=== PATIENT | male | born 1950 | race Two or more races ===

== ENCOUNTER 2019-10-16 11:50 | Emergency (ER) | payer MEDICARE, OTHER ==
[~2019-10-16] VITALS: Ht 188 cm; Wt 108.9 kg
[2019-10-16 12:20] VITALS: BP 165/94
--- NOTE | 2019-10-16 12:24 | Emergency Room Report ---
History of Present Illness General Chief Complaint: Upper Respiratory Illness Source: Patient, Family Member Present Illness HPI History of present illness: 61-year-old male with past medical history of dyslipidemia presents with sudden onset shortness of breath, retching and throat pain . Patient was riding in the car when he started choking on a biscuit that he did not properly chew because he is a he subsequently started having nausea, adentulous. The patient's symptoms were abrupt onset, severity was moderate, duration since less than 1 hour. Symptoms happened in the context of swallowing improperly chewed biscuit. The patient endorses associated symptoms of nausea, vomiting, throat pain, and denies any associated symptoms of prodromal chest pain, lightheadedness, syncope, back pain, fever, BETTS , cough or other complaints Past medical history: Dyslipidemia Past surgical history: Denies Smoking: Heavy smoker Alcohol use: Denies Drug use: Denies Review of systems: CONST: No fevers or chills, No night sweats PULMONARY: + cough, + shortness of breath CARDIAC: No chest pain, No palpitations GI: + vomiting, No diarrhea , No melena_or_BRBPR : No dysuria, No hematuria, No discharge NEURO: No new_focal_weakness_or_numbness, No confusion, No vision changes 14 point Review of Systems is otherwise negative except per HPI Physical Exam: GENERAL: Awake_alert_ nontoxic, no acute distress Spo2 100% on [RA], [normal] obese. EYES: Extraocular muscles are intact. Conjunctivae clear. Lids without swelling ENT: External nose and ear normal_in_appearance. Oropharynx clear. Head_ atraumatic, Moist_oral_mucosa No visualized foreign body. NECK: No JVD. No meningismus. No thyromegaly. Supple. Trachea midline. No dysphonia, no stridor, no drooling. No hoarse voice. No palpable foreign body RESP: No increased respiratory effort. Symmetric rise. No stridor. Clear_to_ auscultation_No_rales_No_wheezes CARDIAC: Regular rate and regular rhythm on_auscultation No_significant pedal edema. ABDOMEN: Soft. Nondistended. Nontender_No_rebound_or_guarding. MSK: Normal muscle tone, without rigidity. Extremities without asymmetric deformity or swelling. SKIN: Warm and dry. No visible cyanosis or pallor NEUROLOGIC: Alert, oriented x3. Motor_and_sensation_grossly_intact. No truncal ataxia. Gait_normal Psych: Normal mood and affect, normal judgment and insight - COORDINATION OF CARE Case was discussed with: Patient; Patient's Family; Radiologist Any imaging that were ordered were interpreted as part of the medical decision making: Medical Decision Making/Plan: DDX: FB vs nodule vs hiatal hernia vs aspiration pna versus achalasia versus esophageal spasm On initial evaluation, patient is in mild distress secondary to presumed esophageal foreign body. Patient was promptly placed on monitor and given oxygen. SPO2 was WNL. ETCO2 was also WNL. Oropharynx was patent with no visualized FB. No stridor, drooling, or hoarse voice noted. EKG was performed and showed normal sinus rhythm and no acute abnormalities. Patient was given hot water which relieved the symptoms of esophageal foreign body. I suspect that the water dislodged the food bolus (tea biscuit) Pt was observed for several hours in the ED and able to tolerate PO food and fluid. CT scan of the neck and thorax shows no retained esophageal foreign body which would need emergent endoscopy. No esophageal perforation. CT did demonstrate incidental findings of left vallecular phlebolith, right thyroid lobe nodule, bilateral lung pleural nodules, colonic diverticulosis, and dental caries. Patient and family were informed of these findings. I did recommend follow-up to PMD in 1 to 2 days for referral to GI specialist for endoscopy/colonoscopy, dentist for multiple dental caries, cloth carrier for probable lung biopsy, and repair table operator for thyroid nodule. Patient verbalizes his understanding that all of these referrals must be done via his PMD within a timely manner (1-2 weeks) to eval for infection vs malignancy. Airway was monitored for several hours with full resolution of symptoms. No desaturation events were noted. Patient was seen walking through the hallways of the ER asking to be discharged. Extensive patient education and shared medical decision-making was performed. Pt will be discharged to the care of his son who feels comfortable watching him at home. Strict return ER precautions were discussed. Patient was instructed to call 911 if he feels any more symptoms. Allergies: Coded Allergies: No Known Allergies (Unverified , 10/16/19) COVID-19 Screening Contact w/high risk pt: No Experienced COVID-19 symptoms?: No COVID-19 Testing performed MARINE SERVICES TECHNICIAN: No Nursing Documentation-PMH Past Medical History: No Stated History Physical Exam Vital Signs Date Time Temp Pulse Resp B/P (MAP) Pulse Ox O2 Delivery O2 Flow Rate FiO2 10/16/19 12:03 98.4 81 24 165/94 (117) 99 Room Air Sp02 EP Interpretation: reviewed, normal Procedures Critical Care Time Critical Care Time Critical Care Statement Organ systems at risk include: Cardiac, circulatory, pulmonary Critical care performed for 60 minutes. Time is exclusive of separately billable procedures. Time includes: direct patient care, continuous monitoring and multiple patient reassessment, coordination of patient care, review of patient's medical records , medical consultation, family consultation regarding treatment decisions and documentation of patient care. Medical Decision Making Diagnostic Impression: Primary Impression: Esophageal foreign body Additional Impressions: Nausea and vomiting Dyslipidemia Phlebolith Dental caries Hiatal hernia Pleural nodules Diverticulosis Thyroid nodule EKG Diagnostic Results PA Scribe Text 12-lead EKG (interpreted by me) Time: 1155 Indication: [Rhythm analysis] Tracing visualized and Interpreted by me. Rhythm: Normal sinus rhythm Rate: 76 bpm QTc: 414 Morphology: No_significant_ST_elevations_or_depressions, No STEMI Impression: [Normal_sinus_rhythm_without_significant_abnormality] Rhythm Strip Diag. Results Rhythm Strip Time: 12:22 EP Interpretation: yes Rate: 86 Rhythm: NSR, no PVC's, no ectopy Other Impression Normal CT/MRI/US Diagnostic Results CT/MRI/US Diagnostic Results : Impression Procedure: CT Neck no Contrast Indication: Nausea, retching, throat pain, and shortness of breath after choking on an incompletely masticated biscuit. Findings: Lack of IV contrast limits evaluation. The nasopharynx, oropharynx, hypopharynx, larynx, and included proximal trachea are patent, unremarkable, without evidence of foreign body or other occlusive process. A calcification is seen within the soft tissues adjacent to the left anterolateral aspect of the vallecula. No prevertebral soft tissue swelling demonstrated. The esophagus is grossly unremarkable, although not optimally evaluated in the absence of intraluminal contrast. The visualized portions of the sinuses are clear. There is evidence of multiple dental extractions and dental caries. No cervical mass or adenopathy. The bilateral parapharyngeal spaces are symmetric and clear. The salivary glands are unremarkable. The mastoids are clear. There are advanced degenerative changes of the cervical spine. There is a tiny calcification in the right thyroid lobe upper pole Impression: No evidence of upper aerodigestive tract foreign body or upper respiratory tract occlusive process. Degenerative changes of the cervical spine Soft tissue calcification adjacent to the left side of the vallecula, but uncertain but doubtful significance, possibly a phlebolith. Location is not typical for a sialoltih Other findings as noted, including tiny calcified nodule in the right thyroid lobe upper pole, dental disease Procedure: CT Chest no Contrast Clinical Indication: Sudden onset shortness of breath after choking on an incompletely masticated biscuit Findings: The trachea and proximal airways are clear, without evidence of intraluminal foreign body. The esophagus is nondistended. Intraluminal contents notable evaluated in the absence of ingested contrast. No findings to suggest intraluminal esophageal foreign body demonstrated. There is a small hiatal hernia. There are a few small subpleural nodules, 2 in the right lung apex, one in the posterolateral right upper lobe, at least one in the left lung apex and one in the anterior left upper lobe. The lungs and pleural spaces are clear otherwise. No infiltrates, effusions, masses, or congestion. The heart size is normal. There is some very focal anterior wall pericardial thickening. No mediastinal or hilar mass or adenopathy. The included portion of the thyroid is unremarkable. No axillary or chest wall mass or adenopathy. There is minimal bilateral gynecomastia. The bones demonstrate minimal degenerative spondylosis changes The included upper abdominal anatomy demonstrates colonic diverticulosis Impression: No evidence of proximal airway obstruction. No definite evidence of esophageal foreign body. Bilateral upper lobe subpleural nodules, most likely postinflammatory. Consider 6-12 month follow-up if there is high clinical risk for lung carcinoma. No follow-up necessary if there is not high clinical risk Incidental findings as noted, including small hiatal hernia, trace gynecomastia, colonic diverticulosis, focal anterior wall pericardial thickening Reevaluation Time: 14:11 Last Vital Signs Date Time Temp Pulse Resp B/P (MAP) Pulse Ox O2 Delivery O2 Flow Rate FiO2 10/16/19 12:03 98.4 81 24 165/94 (117) 99 Room Air Status: improved Disposition: HOME, SELF-CARE Admit Decision Time: 14:00 Condition: Stable Scripts Ibuprofen* (MOTRIN*) 600 Mg Tablet 600 MG ORAL Q6H PRN for FOR PAIN, #20 TAB 0 Refills Prov: Karen Chery D.O. 10/16/19 Clindamycin Hcl (CLINDAMYCIN HCL) 300 Mg Capsule 300 MG ORAL THREE TIMES A DAY, #21 CAP Prov: Karen Chery D.O. 10/16/19 Patient Instructions: Dental Caries, [id number], Diverticulosis, Smoking Cessation, Tips for Success, [id number], Swallowed Foreign Body, Adult, Easy- to-Read, Thyroid Nodule Additional Instructions: Instructions for patient/rubber worker: Follow up with your physician in 1 to 2 days for referral to GI specialist for endoscopy to evaluate if you have any anatomical abnormalities of your throat. Your CT scans were negative for any retained foreign body, however you were incidentally found to have a hiatal hernia that needs further management and outpatient follow-up. You will need Gi specialist to do a special test called endoscopy to evaluate for anatomical abnormalities in your throat. You will also require a colonoscopy to eval for diverticulosis and intermediate management to rule out colon cancer. You are also found to have incidental finding of a right thyroid lobe nodule which needs followed up with an repair table operator within 1 month. You are also found to have incidental findings of bilateral pleural lung nodules that need outpatient follow-up within 1 month. They are concerning for malignancy given your long history of smoking. It is advised that you quit smoking tobacco. Please properly chew your food before swallowing. For now, please only eat pure/soft diet until cleared by your doctor Follow-up with your doctor sooner if your condition requires a more timely clinical reevaluation. Return to the emergency department immediately if you feel that your condition is worsening or if you have any new or concerning symptoms. Review your discharge instructions and take any prescriptions given as instructed. Karen Chery D.O. Oct 16, 2019 12:24
--- NOTE | 2019-10-16 13:28 | Diagnostic Imaging Report ---
Indication: Nausea, retching, throat pain, and shortness of breath after choking on an incompletely masticated biscuit. Technique: Spiral acquisitions obtained through the neck. Multiplanar reconstructions were generated.No IV contrast utilized, due to history of renal insufficiency. Total dose length product 297 mGycm. CTDIvol(s) 8 mGy. Dose reduction achieved using automated exposure control Comparison: none Findings: Lack of IV contrast limits evaluation. The nasopharynx, oropharynx, hypopharynx, larynx, and included proximal trachea are patent, unremarkable, without evidence of foreign body or other occlusive process. A calcification is seen within the soft tissues adjacent to the left anterolateral aspect of the vallecula. No prevertebral soft tissue swelling demonstrated. The esophagus is grossly unremarkable, although not optimally evaluated in the absence of intraluminal contrast. The visualized portions of the sinuses are clear. There is evidence of multiple dental extractions and dental caries. No cervical mass or adenopathy. The bilateral parapharyngeal spaces are symmetric and clear. The salivary glands are unremarkable. The mastoids are clear. There are advanced degenerative changes of the cervical spine. There is a tiny calcification in the right thyroid lobe upper pole Impression: No evidence of upper aerodigestive tract foreign body or upper respiratory tract occlusive process. Degenerative changes of the cervical spine Soft tissue calcification adjacent to the left side of the vallecula, but uncertain but doubtful significance, possibly a phlebolith. Location is not typical for a sialoltih Other findings as noted, including tiny calcified nodule in the right thyroid lobe upper pole, dental disease The CT scanner at [facility] is accredited by the [employer] and the scans are performed using protocols designed to limit radiation exposure to as low as reasonably achievable to attain images of sufficient resolution adequate for diagnostic evaluation.
[2019-10-16] MEDS ORDERED: Glucagon 1mg Inj IM ONE (13:30)
--- NOTE | 2019-10-16 13:45 | Diagnostic Imaging Report ---
Clinical Indication: Sudden onset shortness of breath after choking on an incompletely masticated biscuit Technique: Spiral acquisitions obtained through the chest. No IV contrast utilized, per referring physician request. Multiplanar reconstructions generated. Total dose length product 447 mGycm. CTDIvol(s) 10 mGy. Dose reduction achieved using automated exposure control Comparison: none Findings: The trachea and proximal airways are clear, without evidence of intraluminal foreign body. The esophagus is nondistended. Intraluminal contents notable evaluated in the absence of ingested contrast. No findings to suggest intraluminal esophageal foreign body demonstrated. There is a small hiatal hernia. There are a few small subpleural nodules, 2 in the right lung apex, one in the posterolateral right upper lobe, at least one in the left lung apex and one in the anterior left upper lobe. The lungs and pleural spaces are clear otherwise. No infiltrates, effusions, masses, or congestion. The heart size is normal. There is some very focal anterior wall pericardial thickening. No mediastinal or hilar mass or adenopathy. The included portion of the thyroid is unremarkable. No axillary or chest wall mass or adenopathy. There is minimal bilateral gynecomastia. The bones demonstrate minimal degenerative spondylosis changes The included upper abdominal anatomy demonstrates colonic diverticulosis Impression: No evidence of proximal airway obstruction. No definite evidence of esophageal foreign body. Bilateral upper lobe subpleural nodules, most likely postinflammatory. Consider 6-12 month follow-up if there is high clinical risk for lung carcinoma. No follow-up necessary if there is not high clinical risk Incidental findings as noted, including small hiatal hernia, trace gynecomastia, colonic diverticulosis, focal anterior wall pericardial thickening The CT scanner at [facility] is accredited by the [employer] and the scans are performed using protocols designed to limit radiation exposure to as low as reasonably achievable to attain images of sufficient resolution adequate for diagnostic evaluation.
[2019-10-16] MEDS ORDERED: IBUPROFEN600 M1 ORAL (14:22)
[2019-10-16] MEDS ORDERED: CLINDAMYCIN HC300 MG ORAL (14:22)
[2019-10-16 14:37] VITALS: BP 159/89
== END 2019-10-16 14:37 | disposition home or self-care (01) ==
LOC: EMR 12:17
DX: T18.128A Food in esophagus causing other injury, initial encounter (principal); X58.XXXA Exposure to other specified factors, initial encounter; Y92.9 Unspecified place or not applicable; E78.5 Hyperlipidemia, unspecified; F17.200 Nicotine dependence, unspecified, uncomplicated; E66.9 Obesity, unspecified; I87.8 Other specified disorders of veins; E04.1 Nontoxic single thyroid nodule; R91.8 Other nonspecific abnormal finding of lung field; K57.90 Diverticulosis of intestine, part unspecified, without perforation or abscess without bleeding; K02.9 Dental caries, unspecified; R11.2 Nausea with vomiting, unspecified; K44.9 Diaphragmatic hernia without obstruction or gangrene
CPT/HCPCS: 70490; 71250; 99291